=== PATIENT | female | born 1960 | race African-American/Black ===

== ENCOUNTER → 2017-04-20 | Outpatient (CLI) | payer OTHER ==
[~2017-04-20] VITALS: Ht 180.3 cm; Wt 156.5 kg
[~2017-04-20] MED LIST: AMBIEN 5 MG TABL5 M1 PO; LISINOPRIL20 MG PO; LOSARTAN-HCTZ1 EAC3 PO; MOBIC15 MG PO; OMEPRAZOLE 20 M20 M1 PO; SINGULAIR 10 MG10 M1 PO; ZOFRAN ODT4 MG PO
[2017-04-20 13:05] VITALS: BP 142/96
== END | disposition home or self-care (01) ==
LOC: PAIN 07:52
DX: M54.16 Radiculopathy, lumbar region (principal); M47.816 Spondylosis without myelopathy or radiculopathy, lumbar region; E66.01 Morbid (severe) obesity due to excess calories; Z68.42 Body mass index [BMI] 45.0-49.9, adult; Z79.1 Long term (current) use of non-steroidal anti-inflammatories (NSAID)

== ENCOUNTER → 2017-05-31 | Outpatient (CLI) | payer OTHER ==
[~2017-05-31] VITALS: Ht 177.8 cm; Wt 159.8 kg
--- NOTE | ~2017-05-31 | HPC ---
[facility] [address] [place] [address] PAIN MANAGEMENT CONSULTATION Name: NIELS MORELOS Room #: REG ISRRAEL Lechuga#: [id number] Admission: 05/31/17 Attend Phys: Toribio Payne DO Discharge: Date of : 64 Report #: [id number] THIS REPORT FOR: //name// CC: Ammon Payne HISTORY OF PRESENT ILLNESS: The patient is a very pleasant 56-year-old female seen in consultation on 04/20/2017 and diagnosed with bilateral right greater than left L5 radiculopathy. The patient was given epidural injection at that time. She returns to pain clinic today noting she had a significant incremental improvement, 70% for about a month, though the pain is beginning to recur. It is fairly classically in L5 distribution, bilateral, low back, posterior leg and thigh down to the toe. She has weakness to plantar flexion. Unable to walk on her toes. Right is greater than left. The patient has continued to take meloxicam 15 mg 1 a day. The patient had been quite active in her youth, played a lot of basketball and other sports. She has put on a fair bit of weight. BMI is up to 50.6 kilograms per meter squared. She has become a little more sedentary. She does note the pain continues to be quite problematic presently. PHYSICAL EXAMINATION: Shows pleasant 56-year-old female. Again, BMI is 50.6 kilograms per meter squared. Blood pressure is nominally elevated at 166/98, pulse 75, respirations 16. Rises from chair using armrest. Antalgic gait. Lumbar flexion is modestly limited, diffuse tenderness across the low back. No discrete trigger points noted. Positive straight leg raise on the right greater than the left. Bilateral weakness in plantar flexion. Achilles reflexes are diminished symmetrically. DIAGNOSTIC STUDIES: MRI from 03/26/2017 notes disk osteophyte complex and bilateral neural foraminal narrowing, right greater than left, at L5-S1. ASSESSMENT: Symptomatic lumbar radiculopathy by clinical exam and history. RECOMMENDATIONS: 1. Repeat epidural injection under fluoroscopy at L5-S1. 2. Continue meloxicam 15 mg 1 a day. 3. We will refer to Physical Therapy for core strengthening exercises for L5 weakness. 4. We will tentatively have the patient make an appointment to see Dr. Jasper Younger for possible decompression at L5-S1 if current therapy does not afford adequate relief. [address] [address] PAIN MANAGEMENT CONSULTATION Name: NIELS MORELOS Room #: REG CLI Ankush#: [id number] Admission: 05/31/17 Attend Phys: Toribio Payne DO Discharge: Date of : 64 Report #: [id number] Thank you for allowing me to participate in this patient's care. Currently, we are awaiting authorization for epidural injection at L5-S1. <ELECTRONICALLY SIGNED> By: Toribio Payne DO 06/01/17 0705 1523 0200 Toribio Payne DO /donny
[2017-05-31 14:55] VITALS: BP 166/98
== END | disposition home or self-care (01) ==
LOC: PAIN 05-18 10:20
DX: M54.16 Radiculopathy, lumbar region (principal); I10 Essential (primary) hypertension; E66.09 Other obesity due to excess calories; Z98.890 Other specified postprocedural states; Z68.43 Body mass index [BMI] 50.0-59.9, adult; Z79.899 Other long term (current) drug therapy

== ENCOUNTER → 2017-06-07 | Outpatient (CLI) | payer OTHER ==
[~2017-06-07] VITALS: Ht 177.8 cm; Wt 158.6 kg
--- NOTE | ~2017-06-07 | HPC ---
[facility] [address] [place] [address] PAIN MANAGEMENT CONSULTATION Name: NIELS MORELOS Room #: REG ISRRAEL Lechuga#: [id number] Admission: 06/07/17 Attend Phys: Toribio Payne DO Discharge: Date of : 64 Report #: [id number] THIS REPORT FOR: //name// CC: Ammon Payne DATE OF SERVICE: 06/07/2017 PROCEDURE: Lumbar epidural injection under fluoroscopy. INDICATION: Symptomatic lumbar radiculopathy, neuropathic pain. The patient was prior seen 05/31/2017 for her ongoing lumbar radicular pain. She had about 70% relief with one epidural injection, we sought authorization for repeat epidural injection today. The patient is following up with Dr. Jasper Younger, [facility] for consideration for decompressive laminectomy. We suggested that she follow up with imaging center where she got her 03/26/2017 MRI to get a disk to take to that appointment. Ongoing subjective pain, which the patient rates 8-9 on VAS, bilateral posterior buttocks and legs. ASSESSMENT: Symptomatic lumbar radiculopathy. PROCEDURE NOTE: Lumbar epidural injection under fluoroscopy. After both written and informed consent was obtained including risk of spinal cord damage, infection, increased pain and paralysis, the patient agreed to proceed. The patient was taken to the fluoroscopy suite, placed in a prone position with appropriate abdominal bolstering. After sterile prep with ChloraPrep and sterile drape, a skin wheal with 1% Xylocaine was raised. A 6-inch 20 gauge Tuohy needle was inserted. From an oblique approach into the posterior-superior aspect of the left L5-S1 neural foramen with continuous pressure on the glass syringe plunger for loss of resistance. Glass syringe was filled with 2 mL of 0.1 Xylocaine. The glass loss of resistance syringe was removed. A low volume extension tubing was connected, negative aspiration was accomplished for cerebrospinal fluid or blood. 1 mL of Omnipaque was injected which showed spread both within the epidural space and laterally along the nerve root. This was followed with 80 mg of triamcinolone plus 1 mL of 1.5% preservative-free Xylocaine. Needle was partially withdrawn, 0.5 mL of Xylocaine was injected to clear the needle and the needle was [place] [address] PAIN MANAGEMENT CONSULTATION Name: NIELS MORELOS [facility] [id number] Admission: 06/07/17 Attend Phys: Toribio Payne DO Discharge: Date of : 64 Report #: [id number] cleansed, Band-Aid was applied. The patient was allowed to ambulate to the recovery room, discharged in good and stable condition. By: 1546 0003 Toribio Payne, DO /nt
[2017-06-07 14:36] VITALS: BP 151/100
== END | disposition home or self-care (01) ==
LOC: PAIN 06:20
DX: M54.16 Radiculopathy, lumbar region (principal); G62.9 Polyneuropathy, unspecified; Z98.890 Other specified postprocedural states

== ENCOUNTER → 2017-08-06 | Outpatient (CLI) | payer OTHER ==
[~2017-08-06] VITALS: Ht 177.8 cm; Wt 160.5 kg
[~2017-08-06] MED LIST changes: +TYLENOL EXTRA500 MG PO
--- NOTE | ~2017-08-06 | HPC ---
[facility] [address] [place] [address] PAIN MANAGEMENT CONSULTATION Name: NIELS MORELOS Room #: REG ISRRAEL Lechuga#: [id number] Admission: 08/06/17 Attend Phys: Toribio Payne DO Discharge: Date of : 64 Report #: [id number] THIS REPORT FOR: //name// CC: Ammon Payne DATE OF SERVICE: 08/06/2017 The patient is a delightful 57-year-old female being treated for symptomatic lumbar radiculopathy. She has had 2 lumbar epidural injections, 04/20/2017 and 06/07/2017. I referred her to Dr. Jos Sharp for neurosurgical evaluation. The patient was seen in consultation. The patient returns to pain clinic today noting that she has had very good relief of the radicular pain. She still has ongoing axial back pain. The patient was seen by EDEL Trevizo at [facility] on 07/16/2017. It was felt that surgery if required will be a lumbar fusion and symptoms do not warrant this fairly aggressive surgery. She is morbidly obese and it was felt that a component of pain coming from facets may be well treated with therapy, specifically addressing the facets. Neurosurgical consultation suggested we consider addressing facet mediated pain with consideration for radiofrequency neurolysis if indicated. The patient returns to pain clinic today, we had a prolonged visit reviewing current issues. Again, she does note that axial back pain remains problematic, lumbar radicular pain has improved. She rates her pain a 4 on the Visual Analog Scale. Again, constant, burning, aching sensation in the back. She still has a little instability and is using a walker, she has fallen twice since we saw her in May. Fortunately, no injuries. PHYSICAL EXAMINATION: Shows a 57-year-old female, BMI is 50.8 kilograms per meter squared. Blood pressure modestly elevated 146/97, pulse 89, respirations 20. Rises from chair using the armrest. Diffuse tenderness in the low back, L4-L5 area. Difficult to tell if this radiates down to the SI joints. Lower extremity strength is generally symmetric. ASSESSMENT: Lumbar spondylosis, history of lumbar radiculopathy. RECOMMENDATION: Bilateral L4-L5 and L5-S1 facet joint injections under fluoroscopy today. If this affords transient relief, we will consider medial branch dorsal rami diagnostic blocks at the innervation of these 2 joints, L3, L4 and L5 medial branch dorsal rami, bilateral, at next visit. ASSESSMENT: Lumbar spondylosis. PROCEDURE: Bilateral L4-L5 and L5-S1 facet joint injection under fluoroscopy. [address] [address] PAIN MANAGEMENT CONSULTATION Name: NIELS MORELOS Room #: REG ISRRAEL Lechuga#: [id number] Admission: 08/06/17 Attend Phys: Toribio Payne DO Discharge: Date of : 64 Report #: [id number] PROCEDURE NOTE: After written informed consent was obtained, the patient was taken to the fluoroscopy suite and placed in prone position. After sterile prep and drape, skin wheal was raised. Two 6-inch 22-gauge Chiba needles placed to contact the inferior aspects of the right L4-L5 and right L5-S1 facet joints. AP and lateral projections showed good needle placement. A 20 mg triamcinolone plus 1 mL of 0.5% preservative-free bupivacaine was injected at each joint. Both needles removed. C-arm was turned obliquely to the left side and the procedure was repeated. Total fluoroscopy time was approximately 20 seconds. The patient monitored for an appropriate period of time, discharged in good and stable condition. She noted incremental improvement in baseline pain. This does point to the facets being a component of the axial back pain. We will plan on moving forward with medial branch dorsal rami diagnostic blocks innervating these joints (medial branch dorsal rami of L3, L4, and L5, bilateral) at next visit if she does not get ongoing relief with the steroid injection. We will have the patient call back to the nurse's line tomorrow with hourly scores for the next 3 hours. Discharged in good and stable condition. <ELECTRONICALLY SIGNED> By: Toribio Payne DO 08/13/17 1401 1639 195 Toribio Payne DO /nt
[2017-08-06 14:34] VITALS: BP 146/97
== END | disposition home or self-care (01) ==
LOC: PAIN 06:35
DX: M47.816 Spondylosis without myelopathy or radiculopathy, lumbar region (principal); Z68.43 Body mass index [BMI] 50.0-59.9, adult

== ENCOUNTER → 2017-09-14 | Outpatient (CLI) | payer OTHER ==
[~2017-09-14] VITALS: Ht 180.3 cm; Wt 161.0 kg
--- NOTE | ~2017-09-14 | HPC ---
[facility] [address] [place] [address] PAIN MANAGEMENT CONSULTATION Name: NIELS MORELOS Room #: REG ISRRAEL Lechuga#: [id number] Admission: 09/14/17 Attend Phys: Toribio Payne DO Discharge: Date of : 64 Report #: [id number] THIS REPORT FOR: //name// CC: Ammon Payne HISTORY OF PRESENT ILLNESS: The patient is a very pleasant 57-year-old female seen on 08/13/2017 for symptomatic lumbosacral spondylosis and history of lumbar radiculopathy. I did bilateral L4-L5 and L5-S1 facet joint injections at that time. The patient noted significant improvement of baseline pain. She states specifically 50% improvement for about 3 weeks. States her balance is better, but pain continues to be problematic in the low back. She is complaining of pain in the low back, does radiate into the buttocks and down the legs however. PHYSICAL EXAMINATION: Shows a 57-year-old female, morbidly obese, BMI of 49.5 kilograms per meter squared. Vital signs stable (modest hypertension 146/93). Rises from chair using armrest. Diffuse axial back pain exacerbated with rotation and side bending. Lower extremity strength is generally symmetric. He does use a walker to help offload some back pain. ASSESSMENT: Symptomatic lumbar spondylosis by clinical exam and history. RECOMMENDATIONS: Medial branch dorsal rami diagnostic block today, L3, L4 and L5 bilateral. If this affords transient relief, we will consider radiofrequency neurolysis. If this does not give good relief, I am afraid we are left with little other therapeutic options. If the patient is not a surgical candidate (the patient was sent from Neurosurgery on 07/16/2017 with request for facet joint injections and RFA if possible), we may consider medication management or spinal cord stimulator as possible therapeutic option. We will have the patient follow up in 2-3 weeks to evaluate efficacy of interventional therapy today. ASSESSMENT: Symptomatic lumbosacral spondylosis. PROCEDURE: Medial branch dorsal rami diagnostic block x 6, fluoroscopy time was under 30 seconds. PROCEDURE NOTE: After written informed consent was obtained, the patient was taken to fluoroscopy suite, placed in prone position. After sterile prep and drape, three 6-inch 22-gauge Chiba needle was placed to contact the left sacral ala notch, the L4 medial branch dorsal rami adjacent to the L5 superior articular process lateral to the L4-L5 facet joint and the L3 medial branch dorsal rami adjacent to the L4 superior articular process lateral to the L3-L4 facet joint. AP and lateral projections showed good needle placement. 1 mL of a 50:50 mix of 0.5% preservative-free bupivacaine plus 1.5% preservative-free Xylocaine 1:100,000 was injected at each site. All 3 needles were removed. C-arm was turned obliquely to the right and procedure was repeated. [address] [address] PAIN MANAGEMENT CONSULTATION Name: NIELS MORELOS Room #: REG ISRRAEL Lechuga#: [id number] Admission: 09/14/17 Attend Phys: Toribio Payne DO Discharge: Date of : 64 Report #: [id number] After all six needles were removed, the area was cleansed and Band-Aid was applied. The patient was allowed to ambulate to the recover room, monitored for an appropriate period of time, discharged in good and stable condition. By: 1646 2139 Toribio Payne DO /donny
[2017-09-14 14:03] VITALS: BP 146/93
== END | disposition home or self-care (01) ==
LOC: PAIN 07:52
DX: M47.817 Spondylosis without myelopathy or radiculopathy, lumbosacral region (principal); G89.29 Other chronic pain; E66.01 Morbid (severe) obesity due to excess calories; Z68.42 Body mass index [BMI] 45.0-49.9, adult; Z98.890 Other specified postprocedural states; Z79.899 Other long term (current) drug therapy

== ENCOUNTER 2017-10-10 00:34 | Emergency (ER) | payer OTHER ==
[~2017-10-10] VITALS: Ht 180.3 cm; Wt 90.7 kg
--- NOTE | ~2017-10-10 | EKG ---
[address] [address] ELECTROCARDIOGRAM REPORT Name: NIELS MORELOS [facility] [id number] Admission: 10/10/17 Attend Phys: Discharge: 10/10/17 Date of : 64 Report #: [id number] THIS REPORT FOR: //name// [facility] ED Test Date: 2017-10-10 Test Time: 00:40:17 Pat Name: NIELS MORELOS Department: Room: Gender: F Hearing And Speech Assistant: GRACIELA : 1960 Requested By: Kavitha Mcdaniels Order Number: [id number] MD: Gildardo Souza Measurements Intervals Dubois Rate: 88 P: 39 CO: 158 QRS: -34 QRSD: 87 T: 62 QT: 367 QTc: 444 Interpretive Statements Sinus rhythm Probable left ventricular hypertrophy Inferior infarct, old Anterior Q waves, possibly due to LVH Lateral leads are also involved Baseline wander in lead(s) II,aVR,aVF Compared to ECG 11/23/2015 03:54:15 Myocardial infarct finding now present Q waves now present Electronically Signed On 10-10-2017 8:18:14 BUSINESS STRATEGIST by Gildardo Souza [email or web address] <ELECTRONICALLY SIGNED> By: Gildardo Souza MD 10/10/17817 Gildardo Souza MD /EPI
[2017-10-10 01:17] LABS: ABSOLUTE NEUTROPHILS 6.5 thou/uL (1.4-8.2); EOSINOPHILS 2.1 % (0.0-3.0); HEMATOCRIT 38.8 % (37.0-47.0); HEMOGLOBIN 12.8 gm/dL (12.0-15.0); LYMPHOCYTES 24.6 % (24.0-44.0); MCHC 33.1 g/dL (28.0-37.0); MCV 81.5 fL (80.0-100.0); MONOCYTES 8.4 % (1.0-8.0); PLATELET COUNT 345 thou/uL (150-400); POLYS 63.9 % (36.0-66.0); RBC 4.75 mil/uL (4.20-5.00); RDW 15.6 % (10.5-14.5); WBC 10.2 thou/uL (4.0-11.0)
[2017-10-10 01:24] LABS: ANION GAP 9 mmol/L (7-16); BUN 15 mg/dL (7-18); CALCIUM 9.4 mg/dL (8.5-10.1); CHLORIDE 106 mmol/L (98-107); CO2 27 mmol/L (21-32); GLUCOSE 113 mg/dL (74-106); POTASSIUM 3.6 mmol/L (3.5-5.1); SODIUM 142 mmol/L (136-145)
[2017-10-10] MEDS ORDERED: NASONEX17 GM NASAL (01:26)
[2017-10-10 01:33] LABS: TROPONIN-I < 0.04 ng/mL (<0.06)
[2017-10-10 02:54] VITALS: BP 142/64
== END 2017-10-10 03:00 | disposition home or self-care (01) ==
LOC: ER 00:34
PROVIDERS: Emergency Medicine
DX: R07.89 Other chest pain (principal); R10.13 Epigastric pain; Z96.651 Presence of right artificial knee joint

== ENCOUNTER → 2017-10-12 | Outpatient (CLI) | payer OTHER ==
[~2017-10-12] VITALS: Ht 180.3 cm; Wt 163.8 kg
[~2017-10-12] MED LIST changes: +NASONEX17 GM NASAL
--- NOTE | ~2017-10-12 | HPC ---
[facility] [place] [place] [address] PAIN MANAGEMENT CONSULTATION Name: NIELS MORELOS Room #: REG ISRRAEL Lechuga#: [id number] Admission: 10/12/17 Attend Phys: Toribio Payne DO Discharge: Date of : 64 Report #: [id number] THIS REPORT FOR: //name// CC: Ammon Payne DATE OF SERVICE: 10/12/2017 HISTORY OF PRESENT ILLNESS: The patient is a very pleasant 57-year-old female, being treated for axial back pain, lumbar spondylosis. The patient was given medial branch dorsal rami diagnostic blocks at L3, L4 and L5 on 09/14/2017 with good short-term relief of pain. She prior had bilateral L4-L5 and L5-S1 facet joint injections on 08/06/2017, with good transient improvement of baseline pain. She presents to pain clinic today for neurolysis, medial branch dorsal rami, L3, L4 and L5. It appears that right side is a little worse today. We have elected to proceed with this side. We will follow up in 2 weeks for RFL of the left side. Symptomatic lumbar spondylosis. PHYSICAL EXAMINATION: GENERAL: Pleasant 57-year-old female, moderately obese with BMI of 50.4 kilograms per meter squared. VITAL SIGNS: Show hypertension 164/110, pulse 88, respirations 16. MUSCULOSKELETAL: Pain in bilateral right greater than left. Walks with a walker, standing and rotating all exacerbate pain. ASSESSMENT: Lumbosacral spondylosis, lumbar spondylosis and axial back pain. PROCEDURE: Right L2, L3, L4 medial branch dorsal rami neurolysis. DESCRIPTION OF PROCEDURE: After written and informed consent was obtained, the patient was taken to the fluoroscopy suite and placed in prone position. After sterile prep and drape, skin wheal was raised. A 50 mm RFK needle was placed to contact superior articular process of L5, L4, L3 lateral to the L3, L4 and L5 medial branch dorsal rami. After initial impedance, sensor and motor testing was accomplished (numbers were on the chart), each needle was injected with 1 mL of 1% preservative-free Xylocaine and heated to 80 degrees centigrade for 90 seconds. A 30 mg of triamcinolone plus 1 mL of 0.5% preservative-free bupivacaine was injected at each needle. All 3 needles were removed. The area was cleansed. Band-Aids applied. The patient monitored for an appropriate [address] [address] PAIN MANAGEMENT CONSULTATION Name: NIELS MORELOS Room #: REG [id number] Admission: 10/12/17 Attend Phys: Toribio Payne DO Discharge: Date of : 64 Report #: [id number] period of time, discharged in good and stable condition. Follow up in 2 weeks for contralateral RFL. <ELECTRONICALLY SIGNED> By: Toribio Payne DO 10/15/17 0816 1344 1034 Toribio Payne DO /donny
[2017-10-12 14:49] VITALS: BP 164/110
== END | disposition home or self-care (01) ==
LOC: PAIN 06:53
DX: M47.816 Spondylosis without myelopathy or radiculopathy, lumbar region (principal); M47.817 Spondylosis without myelopathy or radiculopathy, lumbosacral region; M54.9 Dorsalgia, unspecified; I10 Essential (primary) hypertension; E66.09 Other obesity due to excess calories; Z68.43 Body mass index [BMI] 50.0-59.9, adult; Z98.890 Other specified postprocedural states; Z79.899 Other long term (current) drug therapy